=== PATIENT | female | born 1970 | race Caucasian/White ===

== ENCOUNTER 2018-06-13 18:21 | Inpatient (IN) | payer MEDICAID ==
[~2018-06-13] VITALS: Ht 154.9 cm; Wt 68.2 kg
[~2018-06-13 18:21] MED LIST: ACCU-CHEK1 EACH MC; BG MC; ECO81 PO; Glucometer; LIPI10 PO; METFORMIN HCL1000 MG PO; PRI20 PO
[2018-06-13 18:24] VITALS: Ht 154.9 cm; Wt 68.2 kg
[2018-06-14] VITALS (7 sets, daily range): BP systolic 107–147; BP diastolic 54–85
[2018-06-14 01:07] LABS: BASOPHIL % 0.1 % (0-2); PLATELET COUNT 389 x10^3mcL (130-400)
[2018-06-14 01:15] LABS: CALCIUM 8.9 mg/dL (8.5-10.1); CARBON DIOXIDE 20.1 mmol/L (21-32); CHLORIDE SERUM 105 mmol/L (98-107); GFR1 > 60 mL/min; GLUCOSE SERUM 271 mg/dL (74-106); SODIUM SERUM 143 mmol/L (136-145)
[2018-06-14 01:28] LABS: CHOLESTEROL/HDL RATIO 4.8
[2018-06-14 02:10] LABS: UA SPECIFIC GRAVITY >=1.030 (1.005-1.035); microscopic required? YES; urine erythrocyte TRACE (NEGATIVE)
[2018-06-14 02:19] LABS: AMPHETAMINE QUAL UR NONE DETECTED (See below)
[2018-06-14 07:35] LABS: PLATELET COUNT 364 x10^3mcL (130-400); RED CELL DISTRIBUTION WIDTH 12.9 % (11.5-14.5)
[2018-06-14 07:44] LABS: BASOPHIL % 0 % (0-2)
[2018-06-14 07:46] LABS: CALCIUM 9.2 mg/dL (8.5-10.1); CARBON DIOXIDE 19.9 mmol/L (21-32); CHLORIDE SERUM 106 mmol/L (98-107); CREATININE SERUM 0.9 mg/dL (0.6-1.0); GFR1 > 60 mL/min; GLUCOSE SERUM 214 mg/dL (74-106); POTASSIUM SERUM 3.9 mmol/L (3.5-5.1); SODIUM SERUM 140 mmol/L (136-145)
[2018-06-15 05:08] VITALS: BP 106/48
[2018-06-15 07:22] LABS: PLATELET COUNT 368 x10^3mcL (130-400); RED CELL DISTRIBUTION WIDTH 13.4 % (11.5-14.5)
[2018-06-15 07:48] LABS: CALCIUM 9.2 mg/dL (8.5-10.1); CARBON DIOXIDE 21.9 mmol/L (21-32); CHLORIDE SERUM 103 mmol/L (98-107); CREATININE SERUM 0.7 mg/dL (0.6-1.0); GFR1 > 60 mL/min; GLUCOSE SERUM 148 mg/dL (74-106); POTASSIUM SERUM 4.1 mmol/L (3.5-5.1); SODIUM SERUM 137 mmol/L (136-145)
[2018-06-15 09:13] VITALS: BP 131/74
[2018-06-15 11:55] LABS: BAND NEUTROPHIL 0 % (0-10); BASOPHIL 0 % (0-2); MONOCYTE 4 % (0-7); SEGMENTED NEUTROPHILS 88 % (37-75)
[2018-06-15 11:56] LABS: PLATELET MORPHOLOGY PLATELETS NORMAL; rbc morphology (normal/abnorm) NORMAL (NORMAL)
[2018-06-15 12:55] VITALS: BP 128/59
[2018-06-15 14:17] LABS: PLATELET COUNT 395 x10^3mcL (130-400); RED CELL DISTRIBUTION WIDTH 13.7 % (11.5-14.5)
[2018-06-15 14:35] LABS: BAND NEUTROPHIL 0 % (0-10); BASOPHIL 0 % (0-2); MONOCYTE 2 % (0-7); SEGMENTED NEUTROPHILS 91 % (37-75)
[2018-06-15 14:38] LABS: PLATELET MORPHOLOGY PLATELETS INCREASED; rbc morphology (normal/abnorm) ABNORMAL (NORMAL)
[2018-06-15 17:06] VITALS: BP 123/80
[2018-06-15 20:51] VITALS: BP 129/78
[2018-06-16 05:10] VITALS: BP 119/60
[2018-06-16 06:18] LABS: CALCIUM 9.1 mg/dL (8.5-10.1); CHLORIDE SERUM 102 mmol/L (98-107); CREATININE SERUM 0.7 mg/dL (0.6-1.0); GFR1 > 60 mL/min; GLUCOSE SERUM 120 mg/dL (74-106); POTASSIUM SERUM 3.9 mmol/L (3.5-5.1); SODIUM SERUM 138 mmol/L (136-145)
[2018-06-16 09:34] LABS: BASOPHIL % 0.1 % (0-2); PLATELET COUNT 368 x10^3mcL (130-400); RED CELL DISTRIBUTION WIDTH 13.3 % (11.5-14.5)
[2018-06-16 09:42] VITALS: BP 140/82
[2018-06-16] MEDS ORDERED: PREDNISONE20 MG PO (10:39)
[2018-06-16] MEDS ORDERED: QVAR REDIHALE10.6 G1 IH (10:39)
[2018-06-16] MEDS ORDERED: VENTOLIN H0.09 MG/A1 INH (10:39)
[2018-06-16 12:40] VITALS: BP 145/90
[2018-06-16 12:52] VITALS: BP 140/82
== END 2018-06-16 13:57 | disposition home or self-care (01) | DRG 141 ==
LOC: ED 18:21 → DU 06-14 00:05
PROVIDERS: Family Medicine
DX: J45.901 Unspecified asthma with (acute) exacerbation (principal); E11.9 Type 2 diabetes mellitus without complications; D72.829 Elevated white blood cell count, unspecified; E87.6 Hypokalemia; E66.9 Obesity, unspecified; E78.5 Hyperlipidemia, unspecified; R06.03 Acute respiratory distress; Z68.29 Body mass index [BMI] 29.0-29.9, adult; T38.0X5A Adverse effect of glucocorticoids and synthetic analogues, initial encounter; Y92.018 Other place in single-family (private) house as the place of occurrence of the external cause; Z79.82 Long term (current) use of aspirin; Z79.84 Long term (current) use of oral hypoglycemic drugs
CPT/HCPCS: 82962; 94150; J2920; J2930; J3475; J7613; J7620; J7644; Q0092

== ENCOUNTER 2020-05-06 13:35 | Emergency (ER) | payer MEDICAID ==
[~2020-05-06] VITALS: Ht 152.4 cm; Wt 72.6 kg
[~2020-05-06 13:35] MED LIST changes: +PREDNISONE20 MG PO; +QVAR REDIHALE10.6 G1 IH; +VENTOLIN H0.09 MG/A1 INH
[2020-05-06 13:51] VITALS: Ht 152.4 cm; Wt 72.6 kg
[2020-05-06 15:46] LABS: BASOPHIL % 0.7 % (0-2)
[2020-05-06 15:50] LABS: PLATELET COUNT 537 x10^3mcL (130-400); RED CELL DISTRIBUTION WIDTH 15.4 % (11.5-14.5)
[2020-05-06 16:10] LABS: CALCIUM 8.8 mg/dL (8.5-10.1); CARBON DIOXIDE 25.6 mmol/L (21-32); CHLORIDE SERUM 106 mmol/L (98-107); CREATININE SERUM 0.5 mg/dL (0.6-1.0); GFR1 > 60 mL/min; GLUCOSE SERUM 110 mg/dL (74-106); POTASSIUM SERUM 3.1 mmol/L (3.5-5.1); SODIUM SERUM 142 mmol/L (136-145)
[2020-05-06 16:15] LABS: ALBUMIN 3.4 g/dL (3.4-5.0); ALKALINE PHOSPHATASE 76 U/L (46-116); ALT/SGPT 35 U/L (14-59); AST/SGOT 25 U/L (15-37); BILIRUBIN TOTAL 0.21 mg/dL (0.20-1.00); TOTAL PROTEIN, SERUM 6.9 g/dL (6.4-8.2)
[2020-05-06 17:02] VITALS: BP 132/81
== END 2020-05-06 17:02 | disposition home or self-care (01) ==
LOC: ED 13:35
PROVIDERS: Emergency Medicine
DX: G44.209 Tension-type headache, unspecified, not intractable (principal); E11.9 Type 2 diabetes mellitus without complications; J45.909 Unspecified asthma, uncomplicated
CPT/HCPCS: 82962; 83880; 84439; G0378; J1885; J2765; J7030